=== PATIENT | female | born 1945 | race Caucasian/White ===

== ENCOUNTER → 2016-10-15 | Outpatient (CLI) | payer OTHER ==
[~2016-10-15] MED LIST: AMIT50TA3; LIS10T PO; SULF-35 PO
[2016-10-15 08:31] LABS: Urine RBC None Seen /hpf (0 - 4)
[2016-10-15 09:04] LABS: Urine Bilirubin Negative (Negative); Urine Blood Negative /uL (Negative); Urine Color Yellow (Yellow); Urine Glucose Normal (Normal); Urine Ketone Negative (Negative); Urine Nitrite Negative (Negative); Urine Squamous Epithelial Cell FEW /hpf (<5); Urine Urobilinogen Normal (Negative)
[2016-10-15 10:08] LABS: BUN/Creatinine Ratio 13.6; Bilirubin, Total 0.4 mg/dL (0.2-1.0); Calcium 9.8 mg/dL (8.5-10.1); Potassium 3.8 mmol/L (3.5-5.1); Total Protein 7.8 g/dL (6.4-8.2)
[2016-10-15 10:09] LABS: Albumin 3.5 g/dL (3.4-5.0)
== END | disposition home or self-care (01) ==
LOC: LAB 08:03
PROVIDERS: ATTEND Nurse Practitioner
DX: M32.9 Systemic lupus erythematosus, unspecified (principal)
CPT/HCPCS: 36415; 80053; 80061; 81001; 82306; 82607; 83036; 84443

== ENCOUNTER 2018-08-22 17:37 | Inpatient (IN) | payer OTHER | END 2018-08-23 13:50 | disposition home or self-care (01) | LOC: ER 17:37 → OVERFLOW 17:38 → WEST WING 20:50 ==

== ENCOUNTER 2018-11-30 00:53 | Emergency (ER) | payer OTHER ==
[~2018-11-30] VITALS: Ht 170.2 cm; Wt 40.8 kg
[~2018-11-30 00:53] MED LIST changes: +HYDR-531 PO
[2018-11-30] MEDS ORDERED: ALBUTEROL SULF 2.5 MG/0.5ML(0.5%) NEB SOLN NEB ONE (03:00)
[2018-11-30] MEDS ORDERED: IPRATROPIUM BROM 0.5 MG/2.5ML INH SOL NEB ONE (03:00)
[2018-11-30 03:23] LABS: Basophils # (auto) 0 uL; Basophils % (auto) 0.8 % (0.0-2.0); Eosinophils # (auto) 0.1 uL; Hematocrit 37.9 % (36.0-46.0); Hemoglobin 12.6 g/dL (12.2-16.2); Lymphocytes # (auto) 1.4 uL; Lymphocytes % (auto) 27.1 % (10.0-50.0); Mean Corpuscular Hemoglobin 30.2 pg (28.0-32.0); Mean Corpuscular Hgb Conc. 33.3 g/dL (32.0-36.0); Mean Corpuscular Volume 90.7 fL (80.0-100.0); Monocytes # (auto) 0.4 uL; Monocytes % (auto) 7.2 % (0.0-12.0); Neutrophils # (auto) 3.2 uL; Neutrophils % (auto) 63.9 % (37.0-80.0); Nucleated Red Blood Cells % 0.1 %; Platelet Count (auto) 226 10^3/uL (140-450); Red Blood Cells 4.18 10^6/uL (4.0-5.20); Red Cell Distribution Width 16.1 % (11.8-14.3)
[2018-11-30] MEDS ORDERED: cloNIDine HCL 0.1 MG TAB PO ONE (03:30)
[2018-11-30 03:40] LABS: Alanine Aminotransferase 11 U/L (13-56); Albumin 3.9 g/dL (3.4-5.0); Anion Gap 8 (5-15); Aspartate Aminotransferase 14 U/L (15-37); BUN/Creatinine Ratio 19.2; Blood Urea Nitrogen 14 mg/dL (7-18); Calcium 9.9 mg/dL (8.5-10.1); Carbon Dioxide 26 mmol/L (21-32); Chloride 99 mmol/L (98-107); GFR African American 100 mL/min; GFR Non-African American 83 mL/min; Glucose 89 mg/dL (74-106); Magnesium 1.8 mg/dL (1.6-2.6); Potassium 3.8 mmol/L (3.5-5.1); Sodium 133 mmol/L (136-145)
[2018-11-30 03:45] LABS: Alkaline Phosphatase 97 U/L (45-117); Bilirubin, Total 0.5 mg/dL (0.2-1.0); Total Protein 8.2 g/dL (6.4-8.2)
[2018-11-30 04:37] LABS: Urine Bacteria NONE SEEN /hpf (None Seen); Urine Blood Negative /uL (Negative); Urine Specific Gravity 1.007 (1.001-1.035); Urine WBC <1 /hpf (0 - 5)
[2018-11-30] MEDS ORDERED: AZITHROMYCIN 500MG/ 250ML 250 ML IV ONE (09:00)
[2018-11-30 11:03] VITALS: BP 166/93
== END 2018-11-30 12:31 | disposition home or self-care (01) ==
LOC: ER 01:08
DX: J44.1 Chronic obstructive pulmonary disease with (acute) exacerbation (principal); M19.90 Unspecified osteoarthritis, unspecified site; I10 Essential (primary) hypertension; F17.210 Nicotine dependence, cigarettes, uncomplicated; Z86.73 Personal history of transient ischemic attack (TIA), and cerebral infarction without residual deficits; Z90.710 Acquired absence of both cervix and uterus; Z90.89 Acquired absence of other organs; Z88.0 Allergy status to penicillin
CPT/HCPCS: 36415; 71045; 80053; 81001; 83735; 83880; 84484; 85025; 93005; 94640; 96365; 96366; 99284; J0456; J7611; J7644

== ENCOUNTER → 2020-04-06 | Outpatient (CLI) | payer OTHER ==
[2020-04-06 11:56] LABS: Basophils # (auto) 0.1 10 ^3/uL (0-0.2); Basophils % (auto) 2.1 % (0.0-2.0); Eosinophils # (auto) 0.2 10 ^3/uL (0-0.8); Eosinophils % (auto) 4.4 % (0.0-7.0); Hematocrit 37.7 % (36.0-46.0); Hemoglobin 12.2 g/dL (12.2-16.2); Lymphocytes # (auto) 1.5 10 ^3/uL (0.4-5.4); Lymphocytes % (auto) 42.3 % (10.0-50.0); Mean Corpuscular Hemoglobin 30.5 pg (28.0-32.0); Mean Corpuscular Hgb Conc. 32.4 g/dL (32.0-36.0); Mean Corpuscular Volume 94.1 fL (80.0-100.0); Monocytes # (auto) 0.5 10 ^3/uL (0-1.3); Monocytes % (auto) 14.2 % (0.0-12.0); Neutrophils # (auto) 1.3 10 ^3/uL (1.6-8.6); Platelet Count (auto) 210 10^3/uL (140-450); Red Blood Cells 4.01 10^6/uL (4.0-5.20); Red Cell Distribution Width 16.5 % (11.8-14.3); White Blood Cell 3.5 10^3/uL (4.4-10.8)
[2020-04-06 12:09] LABS: Urine Bacteria FEW /hpf (None Seen); Urine Blood Negative /uL (Negative); Urine Hyaline Cast FEW /lpf (0 - 2); Urine Specific Gravity 1.011 (1.001-1.035); Urine WBC 1 /hpf (0 - 5)
[2020-04-06 12:56] LABS: Potassium 4.5 mmol/L (3.5-5.1)
[2020-04-06 13:06] LABS: Albumin 3.5 g/dL (3.4-5.0); BUN/Creatinine Ratio 21.9; Bilirubin, Total 0.4 mg/dL (0.2-1.0); Calcium 9.6 mg/dL (8.5-10.1); Total Protein 7.5 g/dL (6.4-8.2)
== END | disposition home or self-care (01) ==
LOC: LAB 11:17
PROVIDERS: ATTEND Student in an Organized Health Care Education/Training Program
DX: R73.9 Hyperglycemia, unspecified (principal)
CPT/HCPCS: 36415; 80053; 80061; 81001; 83036; 84443; 85025

== ENCOUNTER 2020-08-19 01:34 | Inpatient (IN) | payer OTHER ==
[~2020-08-19] VITALS: Ht 165.1 cm; Wt 46.6 kg
[2020-08-19] MEDS ORDERED: ONDANSETRON HCL 4 MG/2 ML VIAL IV ONE (03:30)
[2020-08-19] MEDS ORDERED: MORPHINE SULF INJ 2 MG/ML SYRINGE 1ML IV ONE (03:30)
[2020-08-19] MEDS ORDERED: MORPHINE SULFATE 4 MG/ML SYR/VIAL IV PRN (05:30)
[2020-08-19] MEDS ORDERED: DOCUSATE SOD 100 MG CAP PO PRN (05:30)
[2020-08-19] MEDS ORDERED: ACETAMINOPHEN 325 MG TAB PO PRN (05:30)
[2020-08-19] MEDS ORDERED: NITROGLYCERIN 0.4 MG SL TAB SL PRN (05:30)
[2020-08-19] MEDS ORDERED: MORPHINE SULF INJ 2 MG/ML SYRINGE 1ML IV PRN (05:30)
[2020-08-19] MEDS ORDERED: hydrALAZINE HCL 20 MG/ML VL IV PRN (05:30)
[2020-08-19] MEDS: SODIUM CHLORIDE 0.9% 1,000 ML IV SCH ×2 (06:17→22:10)
[2020-08-19 07:00] LABS: Urine Bacteria NONE SEEN /hpf (None Seen); Urine Blood Negative /uL (Negative); Urine Hyaline Cast FEW /lpf (0 - 2); Urine Specific Gravity 1.009 (1.001-1.035); Urine WBC 1 /hpf (0 - 5)
[2020-08-19 07:30] LABS: Basophils # (auto) 0 10 ^3/uL (0-0.2); Basophils % (auto) 0.5 % (0.0-2.0); Eosinophils # (auto) 0 10 ^3/uL (0-0.8); Eosinophils % (auto) 0.3 % (0.0-7.0); Hematocrit 33.3 % (36.0-46.0); Hemoglobin 11.2 g/dL (12.2-16.2); Lymphocytes # (auto) 0.9 10 ^3/uL (0.4-5.4); Mean Corpuscular Hemoglobin 29.4 pg (28.0-32.0); Mean Corpuscular Hgb Conc. 33.6 g/dL (32.0-36.0); Mean Corpuscular Volume 87.6 fL (80.0-100.0); Monocytes # (auto) 0.4 10 ^3/uL (0-1.3); Monocytes % (auto) 9.4 % (0.0-12.0); Neutrophils % (auto) 69.8 % (37.0-80.0); Platelet Count (auto) 233 10^3/uL (140-450); Red Cell Distribution Width 15.5 % (11.8-14.3); White Blood Cell 4.4 10^3/uL (4.4-10.8)
[2020-08-19 07:44] LABS: INR 1.08 (0.9-1.15); Partial Thromboplastin Time 27.2 sec (23.0-31.2)
[2020-08-19 07:54] LABS: Potassium 4.1 mmol/L (3.5-5.1)
[2020-08-19 08:04] LABS: Albumin 3.2 g/dL (3.4-5.0); Bilirubin, Total 0.6 mg/dL (0.2-1.0); Calcium 9.3 mg/dL (8.5-10.1); Total Protein 6.6 g/dL (6.4-8.2)
[2020-08-19] MEDS ORDERED: HYDROmorphone HCL 2 MG/ML VL IV ONE (08:15)
[2020-08-19 09:00] VITALS: BP 136/97
[2020-08-19] MEDS: ENOXAPARIN SOD 40 MG/0.4 ML SYRINGE SC SCH (10:00)
[2020-08-19] MEDS: ZINC SULFATE 220mg CAP or TAB PO SCH (11:07)
[2020-08-19] MEDS: FAMOTIDINE 20 MG TAB PO SCH (11:08)
[2020-08-19] MEDS: LISINOPRIL 10 MG TAB PO SCH (11:08)
[2020-08-19] MEDS: MULTIPLE VITAMIN TAB PO SCH (11:08)
[2020-08-19] MEDS: ASCORBIC ACID 500 MG TAB PO SCH ×2 (11:08→21:35)
[2020-08-19] MEDS: MORPHINE SULF INJ 2 MG/ML SYRINGE 1ML IV PRN ×3 (11:22→21:36)
[2020-08-19 13:00] VITALS: BP 158/79
[2020-08-19] MEDS: HYDROcodone-ACET 5/325MG TAB PO PRN ×3 (14:24→23:57)
[2020-08-19 17:00] VITALS: BP 164/89
[2020-08-19 21:00] VITALS: BP 129/82
[2020-08-19] MEDS: ONDANSETRON HCL 4 MG/2 ML VIAL IV PRN (23:56)
[2020-08-20 05:00] VITALS: BP 127/81
[2020-08-20] MEDS: MORPHINE SULF INJ 2 MG/ML SYRINGE 1ML IV PRN ×3 (06:19→20:04)
[2020-08-20] MEDS: ONDANSETRON HCL 4 MG/2 ML VIAL IV PRN ×2 (06:20→10:26)
[2020-08-20 06:44] LABS: Basophils # (auto) 0 10 ^3/uL (0-0.2); Basophils % (auto) 0.2 % (0.0-2.0); Eosinophils # (auto) 0 10 ^3/uL (0-0.8); Hematocrit 27.2 % (36.0-46.0); Hemoglobin 9.2 g/dL (12.2-16.2); Lymphocytes # (auto) 1.3 10 ^3/uL (0.4-5.4); Lymphocytes % (auto) 11.3 % (10.0-50.0); Mean Corpuscular Hemoglobin 29.7 pg (28.0-32.0); Mean Corpuscular Volume 87.3 fL (80.0-100.0); Monocytes # (auto) 1.4 10 ^3/uL (0-1.3); Monocytes % (auto) 12.4 % (0.0-12.0); Neutrophils # (auto) 8.5 10 ^3/uL (1.6-8.6); Neutrophils % (auto) 76.1 % (37.0-80.0); Platelet Count (auto) 181 10^3/uL (140-450); Red Blood Cells 3.11 10^6/uL (4.0-5.20); Red Cell Distribution Width 15.6 % (11.8-14.3); White Blood Cell 11.1 10^3/uL (4.4-10.8)
[2020-08-20 07:04] LABS: Potassium 4.1 mmol/L (3.5-5.1)
[2020-08-20 07:15] LABS: Albumin 2.6 g/dL (3.4-5.0); BUN/Creatinine Ratio 27.5; Bilirubin, Total 0.8 mg/dL (0.2-1.0); Calcium 8.8 mg/dL (8.5-10.1); Total Protein 6.1 g/dL (6.4-8.2)
[2020-08-20] MEDS: HYDROcodone-ACET 5/325MG TAB PO PRN ×3 (08:14→21:44)
[2020-08-20 09:00] VITALS: BP 134/77
[2020-08-20] MEDS: ASCORBIC ACID 500 MG TAB PO SCH ×2 (09:58→21:37)
[2020-08-20] MEDS: MULTIPLE VITAMIN TAB PO SCH (09:58)
[2020-08-20] MEDS: ZINC SULFATE 220mg CAP or TAB PO SCH (09:58)
[2020-08-20] MEDS: ENOXAPARIN SOD 40 MG/0.4 ML SYRINGE SC SCH (10:00)
[2020-08-20] MEDS: FAMOTIDINE 20 MG TAB PO SCH (10:01)
[2020-08-20] MEDS: LISINOPRIL 10 MG TAB PO SCH (10:02)
[2020-08-20 13:00] VITALS: BP 108/65
[2020-08-20] MEDS: SODIUM CHLORIDE 0.9% 1,000 ML IV SCH (14:50)
[2020-08-20 17:30] VITALS: BP 103/62
[2020-08-20] MEDS: Ensure Enlive Strawberry 8oz Bottle PO SCH (18:00)
[2020-08-20 22:00] VITALS: BP 108/60
[2020-08-21 05:00] VITALS: BP 124/65
[2020-08-21] MEDS: MORPHINE SULF INJ 2 MG/ML SYRINGE 1ML IV PRN ×2 (05:45→09:37)
[2020-08-21] MEDS: SODIUM CHLORIDE 0.9% 1,000 ML IV SCH (07:30)
[2020-08-21] MEDS: Ensure Enlive Strawberry 8oz Bottle PO SCH ×3 (08:00→17:55)
[2020-08-21 08:58] LABS: Basophils # (auto) 0 10 ^3/uL (0-0.2); Eosinophils # (auto) 0 10 ^3/uL (0-0.8); Eosinophils % (auto) 0.3 % (0.0-7.0); Hemoglobin 7.5 g/dL (12.2-16.2); Lymphocytes # (auto) 0.9 10 ^3/uL (0.4-5.4); Mean Corpuscular Volume 87.4 fL (80.0-100.0); Neutrophils # (auto) 5.3 10 ^3/uL (1.6-8.6)
[2020-08-21 09:00] VITALS: BP 143/75
[2020-08-21 09:00] LABS: Basophils % (auto) 0.2 % (0.0-2.0); Hematocrit 22.3 % (36.0-46.0); Lymphocytes % (auto) 12.4 % (10.0-50.0); Mean Corpuscular Hemoglobin 29.3 pg (28.0-32.0); Mean Corpuscular Hgb Conc. 33.5 g/dL (32.0-36.0); Monocytes # (auto) 0.7 10 ^3/uL (0-1.3); Monocytes % (auto) 10.5 % (0.0-12.0); Neutrophils % (auto) 76.6 % (37.0-80.0); Platelet Count (auto) 179 10^3/uL (140-450); Red Blood Cells 2.56 10^6/uL (4.0-5.20); Red Cell Distribution Width 15.7 % (11.8-14.3)
[2020-08-21 09:15] LABS: Potassium 3.8 mmol/L (3.5-5.1)
[2020-08-21 09:20] LABS: Albumin 2.3 g/dL (3.4-5.0); BUN/Creatinine Ratio 32.8; Calcium 9.2 mg/dL (8.5-10.1)
[2020-08-21 09:31] LABS: Bilirubin, Total 0.5 mg/dL (0.2-1.0); Total Protein 5.8 g/dL (6.4-8.2)
[2020-08-21] MEDS: ONDANSETRON HCL 4 MG/2 ML VIAL IV PRN (09:37)
[2020-08-21] MEDS: ASCORBIC ACID 500 MG TAB PO SCH ×2 (09:54→21:52)
[2020-08-21] MEDS: MULTIPLE VITAMIN TAB PO SCH (09:54)
[2020-08-21] MEDS: FAMOTIDINE 20 MG TAB PO SCH (09:54)
[2020-08-21] MEDS: ZINC SULFATE 220mg CAP or TAB PO SCH (09:54)
[2020-08-21] MEDS: LISINOPRIL 10 MG TAB PO SCH (09:56)
[2020-08-21] MEDS: ENOXAPARIN SOD 40 MG/0.4 ML SYRINGE SC SCH (09:56)
[2020-08-21] MEDS: CYCLOBENZAPRINE HCL 10 MG TAB PO SCH ×2 (12:06→21:55)
[2020-08-21 13:00] VITALS: BP 136/77
[2020-08-21 13:05] LABS: Basophils # (auto) 0 10 ^3/uL (0-0.2); Eosinophils # (auto) 0 10 ^3/uL (0-0.8); Eosinophils % (auto) 0.3 % (0.0-7.0); Hemoglobin 7.5 g/dL (12.2-16.2); Monocytes # (auto) 0.7 10 ^3/uL (0-1.3)
[2020-08-21 13:07] LABS: Basophils % (auto) 0.5 % (0.0-2.0); Hematocrit 22.2 % (36.0-46.0); Lymphocytes # (auto) 0.8 10 ^3/uL (0.4-5.4); Lymphocytes % (auto) 10.8 % (10.0-50.0); Mean Corpuscular Hemoglobin 29.8 pg (28.0-32.0); Mean Corpuscular Volume 87.5 fL (80.0-100.0); Monocytes % (auto) 10.2 % (0.0-12.0); Neutrophils # (auto) 5.7 10 ^3/uL (1.6-8.6); Neutrophils % (auto) 78.2 % (37.0-80.0); Nucleated Red Blood Cells % 0.1 %; Platelet Count (auto) 177 10^3/uL (140-450); Red Blood Cells 2.53 10^6/uL (4.0-5.20); Red Cell Distribution Width 15.9 % (11.8-14.3); White Blood Cell 7.2 10^3/uL (4.4-10.8)
[2020-08-21 18:13] VITALS: BP 134/74
[2020-08-21] MEDS: HYDROcodone-ACET 5/325MG TAB PO PRN (21:54)
[2020-08-21 22:00] VITALS: BP 127/64
[2020-08-22] VITALS (9 sets, daily range): BP systolic 101–159; BP diastolic 57–85
[2020-08-22] MEDS: SODIUM CHLORIDE 0.9% 1,000 ML IV SCH (00:10)
[2020-08-22 06:31] LABS: Basophils # (auto) 0 10 ^3/uL (0-0.2); Basophils % (auto) 0.4 % (0.0-2.0); Eosinophils # (auto) 0.1 10 ^3/uL (0-0.8); Mean Corpuscular Volume 87.5 fL (80.0-100.0); Monocytes # (auto) 0.7 10 ^3/uL (0-1.3)
[2020-08-22 06:37] LABS: Eosinophils % (auto) 1.6 % (0.0-7.0); Hemoglobin 7.3 g/dL (12.2-16.2); Lymphocytes % (auto) 16.8 % (10.0-50.0); Mean Corpuscular Hemoglobin 31.7 pg (28.0-32.0); Mean Corpuscular Hgb Conc. 36.2 g/dL (32.0-36.0); Monocytes % (auto) 11.2 % (0.0-12.0); Neutrophils # (auto) 4.2 10 ^3/uL (1.6-8.6); Platelet Count (auto) 194 10^3/uL (140-450); Red Blood Cells 2.29 10^6/uL (4.0-5.20); Red Cell Distribution Width 15.4 % (11.8-14.3)
[2020-08-22] MEDS: Ensure Enlive Strawberry 8oz Bottle PO SCH ×3 (08:10→18:07)
[2020-08-22] MEDS: ZINC SULFATE 220mg CAP or TAB PO SCH (08:11)
[2020-08-22] MEDS: ASCORBIC ACID 500 MG TAB PO SCH (08:11)
[2020-08-22] MEDS: FAMOTIDINE 20 MG TAB PO SCH (08:11)
[2020-08-22] MEDS: MULTIPLE VITAMIN TAB PO SCH (08:11)
[2020-08-22] MEDS: LISINOPRIL 10 MG TAB PO SCH (08:12)
[2020-08-22] MEDS: MORPHINE SULF INJ 2 MG/ML SYRINGE 1ML IV PRN ×2 (08:12→12:00)
[2020-08-22] MEDS ORDERED: SODIUM CHLORIDE 0.9% 1,000 ML IV SCH (10:30)
[2020-08-22 19:40] LABS: Urine Bacteria NONE SEEN /hpf (None Seen); Urine Blood Negative /uL (Negative); Urine Budding Yeast OCCASIONAL /hpf (None Seen); Urine Specific Gravity 1.015 (1.001-1.035); Urine WBC 6 /hpf (0 - 5)
== END 2020-08-23 02:10 | disposition short-term general hospital (02) | DRG 534 ==
LOC: ER 01:34 → EDBD 01:34 → TELE 05:19 → TELE-EAST 08:03
PROVIDERS: ADMIT Nurse Practitioner Family; ATTEND Family Medicine
PROC: 30233N1 Transfusion of Nonautologous Red Blood Cells into Peripheral Vein, Percutaneous Approach (ICD-10-PCS; principal; 2020-08-22)
DX: S72.401A Unspecified fracture of lower end of right femur, initial encounter for closed fracture (principal); Z20.822 Contact with and (suspected) exposure to COVID-19; W18.39XA Other fall on same level, initial encounter; Y93.01 Activity, walking, marching and hiking; J44.9 Chronic obstructive pulmonary disease, unspecified; M19.90 Unspecified osteoarthritis, unspecified site; F17.210 Nicotine dependence, cigarettes, uncomplicated; I11.0 Hypertensive heart disease with heart failure; Y93.89 Activity, other specified; Y92.015 Private garage of single-family (private) house as the place of occurrence of the external cause; Y99.9 Unspecified external cause status; Y99.8 Other external cause status; Z86.73 Personal history of transient ischemic attack (TIA), and cerebral infarction without residual deficits; Z88.0 Allergy status to penicillin; Z79.899 Other long term (current) drug therapy; Z79.891 Long term (current) use of opiate analgesic; Z79.01 Long term (current) use of anticoagulants; Z90.710 Acquired absence of both cervix and uterus; Z90.49 Acquired absence of other specified parts of digestive tract; Z80.0 Family history of malignant neoplasm of digestive organs; Z82.49 Family history of ischemic heart disease and other diseases of the circulatory system; Z80.3 Family history of malignant neoplasm of breast
CPT/HCPCS: 36415; 51702; 71045; 73562; 73700; 80053; 81001; 85025; 85049; 85610; 85730; 86850; 86900; 86901; 86920; 87426; 93306; 96361; 96374; 96375; 96376; 97110; 97116; 97530; G0378; J2405

== ENCOUNTER 2022-01-06 17:28 | Inpatient (IN) | payer OTHER, MEDICAID ==
[~2022-01-06] VITALS: Ht 170.2 cm; Wt 36.6 kg
[~2022-01-06 17:28] MED LIST changes: -AMIT50TA3; -LIS10T PO; -SULF-35 PO
[2022-01-06 18:07] LABS: Basophils # (auto) 0.1 10 ^3/uL (0-0.2); Basophils % (auto) 0.6 % (0.0-2.0); Eosinophils # (auto) 0 10 ^3/uL (0-0.8); Eosinophils % (auto) 0.4 % (0.0-7.0); Hematocrit 37.2 % (36.0-46.0); Hemoglobin 12.1 g/dL (12.2-16.2); Lymphocytes # (auto) 0.9 10 ^3/uL (0.4-5.4); Lymphocytes % (auto) 9.8 % (10.0-50.0); Mean Corpuscular Hemoglobin 28.1 pg (28.0-32.0); Mean Corpuscular Hgb Conc. 32.6 g/dL (32.0-36.0); Mean Corpuscular Volume 86.2 fL (80.0-100.0); Monocytes # (auto) 0.6 10 ^3/uL (0-1.3); Monocytes % (auto) 6.9 % (0.0-12.0); Neutrophils # (auto) 7.5 10 ^3/uL (1.6-8.6); Neutrophils % (auto) 82.3 % (37.0-80.0); Red Blood Cells 4.32 10^6/uL (4.0-5.20); Red Cell Distribution Width 15.5 % (11.8-14.3); White Blood Cell 9.1 10^3/uL (4.4-10.8)
[2022-01-06] MEDS ORDERED: NITROGLYCERIN 0.4 MG SL TAB SL ONE (18:15)
[2022-01-06] MEDS ORDERED: ASPirin 325 MG TAB PO ONE (18:15)
[2022-01-06 18:26] LABS: Albumin 2.6 g/dL (3.4-5.0); BUN/Creatinine Ratio 43.6; Calcium 9.6 mg/dL (8.5-10.1); Potassium 3.7 mmol/L (3.5-5.1)
[2022-01-06 18:29] LABS: Bilirubin, Total 0.4 mg/dL (0.2-1.0); Total Protein 6.4 g/dL (6.4-8.2)
[2022-01-06] MEDS ORDERED: ACETAMINOPHEN 325 MG TAB PO PRN (22:30)
[2022-01-06] MEDS ORDERED: ONDANSETRON HCL 4 MG/2 ML VIAL IV PRN (22:30)
[2022-01-06] MEDS ORDERED: ALBUMIN 25% 100 ML IV ONE (22:30)
[2022-01-06] MEDS ORDERED: hydrALAZINE HCL 20 MG/ML VL IV PRN (22:30)
[2022-01-06] MEDS ORDERED: HYDROcodone-ACET 5/325MG TAB PO PRN (22:30)
[2022-01-06] MEDS ORDERED: DOCUSATE SOD 100 MG CAP PO PRN (22:30)
[2022-01-06] MEDS ORDERED: IOHEXOL 350 MG/ML 100ML IJ ONE (22:58)
[2022-01-07] MEDS ORDERED: NITROGLYCERIN 0.4 MG SL TAB SL PRN
[2022-01-07] MEDS ORDERED: MORPHINE SULFATE INJ 2 MG/ml SYRG IV PRN
[2022-01-07 05:30] LABS: Basophils # (auto) 0 10 ^3/uL (0-0.2); Basophils % (auto) 0.5 % (0.0-2.0); Eosinophils # (auto) 0.1 10 ^3/uL (0-0.8); Eosinophils % (auto) 1.5 % (0.0-7.0); Hematocrit 35.6 % (36.0-46.0); Hemoglobin 11.5 g/dL (12.2-16.2); Lymphocytes # (auto) 1.5 10 ^3/uL (0.4-5.4); Lymphocytes % (auto) 18.1 % (10.0-50.0); Mean Corpuscular Hemoglobin 28.4 pg (28.0-32.0); Mean Corpuscular Hgb Conc. 32.2 g/dL (32.0-36.0); Monocytes # (auto) 0.9 10 ^3/uL (0-1.3); Monocytes % (auto) 10.5 % (0.0-12.0); Neutrophils # (auto) 5.8 10 ^3/uL (1.6-8.6); Neutrophils % (auto) 69.4 % (37.0-80.0); Red Blood Cells 4.04 10^6/uL (4.0-5.20); White Blood Cell 8.4 10^3/uL (4.4-10.8)
[2022-01-07 05:49] LABS: Albumin 3.1 g/dL (3.4-5.0); BUN/Creatinine Ratio 52.2; Calcium 9.8 mg/dL (8.5-10.1); Potassium 3.8 mmol/L (3.5-5.1)
[2022-01-07 05:56] LABS: Bilirubin, Total 0.4 mg/dL (0.2-1.0); Total Protein 6.8 g/dL (6.4-8.2)
[2022-01-07] MEDS: SODIUM CHLOR 0.9% PF (SALINE LOCK) 10ML VIAL/SYR IV SCH ×3 (06:11→20:43)
[2022-01-07] MEDS ORDERED: ENOXAPARIN SOD 40 MG/0.4 ML SYRINGE SC SCH (10:00)
[2022-01-07] MEDS ORDERED: ASPirin 81 mg TAB PO SCH (10:00)
[2022-01-07] MEDS: FAMOTIDINE (10MG/ML) 2ML VL IV SCH ×2 (10:24→20:42)
[2022-01-07 16:30] LABS: Urine Bacteria NONE SEEN /hpf (None Seen); Urine Blood Negative /uL (Negative); Urine Specific Gravity 1.042 (1.001-1.035); Urine WBC 2 /hpf (0 - 5)
[2022-01-07 16:35] LABS: Alcohol, Urine < 3.0 mg/dL (0-10); Amphetamine Screen, Urine NEGATIVE (NEGATIVE); Barbiturate Scree,Urine NEGATIVE (NEGATIVE); Benzodiazephine Screen, Urine NEGATIVE (NEGATIVE); Cannabinoid Screen, Urine NEGATIVE (NEGATIVE); Cocaine Screen, Urine NEGATIVE (NEGATIVE); Opiate Scree,Urine NEGATIVE (NEGATIVE); Phencyclidine Screen, Urine NEGATIVE (NEGATIVE)
[2022-01-07 18:25] VITALS: BP 156/74
[2022-01-07] MEDS: hydrALAZINE HCL 25 MG TAB PO SCH (20:43)
[2022-01-07 22:00] VITALS: BP 132/93
[2022-01-07] MEDS: METOPROLOL TARTRATE 50 MG TAB PO SCH (22:00)
[2022-01-08 05:00] VITALS: BP 115/67
[2022-01-08] MEDS: SODIUM CHLOR 0.9% PF (SALINE LOCK) 10ML VIAL/SYR IV SCH ×3 (05:02→22:02)
[2022-01-08 06:44] LABS: INR 1.08 (0.9-1.15); Partial Thromboplastin Time 32.7 sec (24.6-33.4)
[2022-01-08] MEDS ORDERED: ADENOSINE IV STA (07:49)
[2022-01-08] MEDS ORDERED: GIVE UN DILUTED IV STA (07:49)
[2022-01-08 09:00] VITALS: BP 114/72
[2022-01-08] MEDS: hydrALAZINE HCL 25 MG TAB PO SCH ×2 (10:59→21:58)
[2022-01-08] MEDS: FAMOTIDINE (10MG/ML) 2ML VL IV SCH ×2 (11:00→21:56)
[2022-01-08] MEDS: METOPROLOL TARTRATE 50 MG TAB PO SCH ×2 (11:00→21:58)
[2022-01-08 13:00] VITALS: BP 106/76
[2022-01-08] MEDS ORDERED: levoFLOXacin 500MG 100 ML IV ONE ×2 (16:00→20:40)
[2022-01-08 17:00] VITALS: BP 129/79
[2022-01-08 22:02] VITALS: BP 149/85
[2022-01-09 04:32] VITALS: BP 111/67
[2022-01-09] MEDS: SODIUM CHLOR 0.9% PF (SALINE LOCK) 10ML VIAL/SYR IV SCH ×2 (06:33→15:30)
[2022-01-09 07:18] LABS: Basophils # (auto) 0.1 10 ^3/uL (0-0.2); Basophils % (auto) 0.6 % (0.0-2.0); Eosinophils # (auto) 0.2 10 ^3/uL (0-0.8); Eosinophils % (auto) 1.9 % (0.0-7.0); Hemoglobin 12.6 g/dL (12.2-16.2); Lymphocytes # (auto) 1.7 10 ^3/uL (0.4-5.4); Lymphocytes % (auto) 16.6 % (10.0-50.0); Mean Corpuscular Hemoglobin 27.5 pg (28.0-32.0); Mean Corpuscular Hgb Conc. 32.3 g/dL (32.0-36.0); Monocytes # (auto) 0.5 10 ^3/uL (0-1.3); Monocytes % (auto) 4.9 % (0.0-12.0); Neutrophils # (auto) 7.6 10 ^3/uL (1.6-8.6); Nucleated Red Blood Cells % 0.1 %; Red Blood Cells 4.59 10^6/uL (4.0-5.20); White Blood Cell 10.1 10^3/uL (4.4-10.8)
[2022-01-09 07:50] LABS: Albumin 2.9 g/dL (3.4-5.0); Bilirubin, Total 0.6 mg/dL (0.2-1.0); Calcium 9.7 mg/dL (8.5-10.1); Potassium 3.5 mmol/L (3.5-5.1); Total Protein 7.4 g/dL (6.4-8.2)
[2022-01-09 09:00] VITALS: BP 116/74
[2022-01-09] MEDS ORDERED: levoFLOXacin 250MG 50 ML IV SCH ×2 (10:00→21:00)
[2022-01-09] MEDS ORDERED: levoFLOXacin 500MG 100 ML IV SCH (10:00)
[2022-01-09] MEDS: hydrALAZINE HCL 25 MG TAB PO SCH (10:17)
[2022-01-09] MEDS: FAMOTIDINE (10MG/ML) 2ML VL IV SCH (10:17)
[2022-01-09] MEDS: METOPROLOL TARTRATE 50 MG TAB PO SCH (10:18)
[2022-01-09 13:04] VITALS: BP 105/66
[2022-01-09 16:18] VITALS: BP 112/73
== END 2022-01-09 18:25 | disposition hospice, home (50) | DRG 313 ==
LOC: EDUNIT# 17:28 → EDBD 17:28 → ER 17:28 → TELE 23:49 → TELE-WESTW 01-07 18:01
PROVIDERS: ADMIT Nurse Practitioner Family; ATTEND Internal Medicine
DX: R07.9 Chest pain, unspecified (principal); N39.0 Urinary tract infection, site not specified; F03.B0 Unspecified dementia, moderate, without behavioral disturbance, psychotic disturbance, mood disturbance, and anxiety; F17.210 Nicotine dependence, cigarettes, uncomplicated; I71.40 Abdominal aortic aneurysm, without rupture, unspecified; Z20.822 Contact with and (suspected) exposure to COVID-19; J44.9 Chronic obstructive pulmonary disease, unspecified; Z66 Do not resuscitate; Z74.01 Bed confinement status; Z80.3 Family history of malignant neoplasm of breast; Z80.0 Family history of malignant neoplasm of digestive organs; Z82.49 Family history of ischemic heart disease and other diseases of the circulatory system; Z86.73 Personal history of transient ischemic attack (TIA), and cerebral infarction without residual deficits; Z90.710 Acquired absence of both cervix and uterus; Z90.49 Acquired absence of other specified parts of digestive tract; Z88.0 Allergy status to penicillin
CPT/HCPCS: 36415; 70450; 71045; 71275; 80053; 80061; 80307; 81001; 82306; 82607; 83880; 84443; 84484; 85025; 85379; 85610; 85730; 86850; 86870; 86900; 86901; 87426; 93005; 93306; 93970; 96365; 96372; 96375; G0378; J1956; J3490; P9047